=== PATIENT | male | born 1985 | race Hispanic/Latino ===

== ENCOUNTER 2017-07-18 08:00 | Emergency (ER) | payer OTHER ==
[2017-07-18 08:04] VITALS: BMI 23.6
[2017-07-18] MEDS ORDERED: Sodium Chloride 0.9% 1,000 ML IV STA (08:47)
--- NOTE | 2017-07-18 08:50 | ED PDOC ---
Syncope/Near Syncope/Dizziness Time Seen by Provider: 07/18/17 08:18 Chief Complaint (Nursing): Weakness/Neurological Deficit Chief Complaint (Provider): Generalized weakness History Per: Patient, Family Additional Complaint(s): Pt states he woke up 30 minutes [employer] A[employer], urinated, felt generalized weakness while walking back to bed, fell to ground, no LOC, no head trauma. Also saw horizontal bulge in LLQ area that is gone now. Admits to drinking alcohol and using cocaine and marijuana last PM. Denies CP, SOB, palpitations, nausea, vomiting, [place], paresthesias, weakness. Past Medical History Reviewed: Nursing Documentation, Vital Signs Vital Signs: Last Vital Signs Temp 97.6 F 07/18/17 08:04 Pulse 83 07/18/17 08:04 Resp 20 07/18/17 08:04 BP 122/79 07/18/17 08:04 Pulse Ox 98 07/18/17 08:31 - Medical History PMH: No Chronic Diseases - Family History Family History: States: Unknown Family Hx - Living Arrangements Living Arrangements: With Family - Social History Current smoker - smoking cessation education provided: No Alcohol: Social Drugs: Cannabis, Cocaine - Allergies Allergies/Adverse Reactions: Allergies Allergy/AdvReac Type Severity Reaction Status Date / Time No Known Allergies Allergy Verified 07/18/17 08:17 Review of Systems Constitutional: Positive for: Weakness (Generalized). Negative for: Fever, Chills Eyes: Negative for: Vision Change Cardiovascular: Negative for: Chest Pain, Palpitations Respiratory: Negative for: Cough, Shortness of Breath Gastrointestinal: Negative for: Nausea, Vomiting, Abdominal Pain, Diarrhea Skin: Negative for: Rash, Lesions Neurological: Negative for: Numbness, Incoordination, Change in Speech, Confusion, Seizures, Altered Mental Status, Headache, Dizziness Physical Exam - Reviewed Nursing Documentation Reviewed: Yes Vital Signs Reviewed: Yes - Physical Exam Appears: Positive for: Well, No Acute Distress Head Exam: Positive for: ATRAUMATIC, NORMAL INSPECTION Skin: Positive for: Normal Color, Warm, Dry Eye Exam: Positive for: Normal appearance, EOMI, PERRL Cardiovascular/Chest: Positive for: Regular Rate, Rhythm Respiratory: Positive for: Normal Breath Sounds. Negative for: Rales, Rhonchi, Wheezing Gastrointestinal/Abdominal: Positive for: Normal Exam, Bowel Sounds, Soft, Other (L inguinal ligament cord-like, no TTP, no induration, no fluctuance). Negative for: Tenderness, Guarding, Rebound Extremity: Positive for: Normal ROM. Negative for: Tenderness, Pedal Edema, Calf Tenderness, Swelling Neurologic/Psych: Positive for: Alert, steel checker II-XII, Oriented. Negative for: Facial Droop - Laboratory Results Result Diagrams: 07/18/17 09:58 07/18/17 09:58 - ECG Interpretation Of ECG: NSR @ 67, no ST-T changes. O2 Sat by Pulse Oximetry: 98 Pulse Ox Interpretation: Normal Medical Decision Making Medical Decision Makin yo male with near syncope. - labs - IVF - EKG - CXR - CT head Accession No. : [id number] Patient Name / ID : OMAYRA ANDINOO / [id number] Exam Date : 07/18/2017 09:46:51 ( Approved ) Study Comment : Sex / Age : M / Y Creator : Trevor Campbell MD Dictator : Trevor Campbell MD Radio Electronics Technician : Insurance Verification Clerk : Trevor Campbell MD Approver2 : Report Date : 07/18/2017 12:09:04 My Comment : HISTORY: Near syncope COMPARISON: No prior. TECHNIQUE: Chest PA and lateral FINDINGS: LUNGS: No active pulmonary disease. PLEURA: No significant pleural effusion identified. No pneumothorax apparent. CARDIOVASCULAR: Normal. OSSEOUS STRUCTURES: No significant abnormalities. VISUALIZED UPPER ABDOMEN: Normal. OTHER FINDINGS: None. IMPRESSION: No active disease. Accession No. : [id number] Patient Name / ID : MISUMANTH ANDINOO / [id number] Exam Date : 07/18/2017 09:39:09 ( Approved ) Study Comment : Sex / Age : M / Y Creator : Trevor Campbell MD Dictator : Trevor Campbell MD Radio Electronics Technician : Insurance Verification Clerk : Trevor Campbell MD Approver2 : Report Date : 07/18/2017 10:27:35 My Comment : PROCEDURE: CT HEAD WITHOUT CONTRAST. HISTORY: Near syncope COMPARISON: None available. TECHNIQUE: Axial computed tomography images were obtained through the head/brain without intravenous contrast. Radiation dose: Total exam DLP = mGy-cm. This CT exam was performed using one or more of the following dose reduction techniques: Automated exposure control, adjustment of the mA and/or kV according to patient size, and/or use of iterative reconstruction technique. FINDINGS: HEMORRHAGE: No intracranial hemorrhage. BRAIN: No mass effect or edema. No atrophy or chronic microvascular ischemic changes. VENTRICLES: Unremarkable. No hydrocephalus. CALVARIUM: Unremarkable. PARANASAL SINUSES: Unremarkable as visualized. No significant inflammatory changes. MASTOID AIR CELLS: Unremarkable as visualized. No inflammatory changes. OTHER FINDINGS: None. IMPRESSION: Normal CT of the Head. Disposition - Clinical Impression Clinical Impression: Episode of generalized weakness, Near syncope - Disposition Referrals: Mariah Montanez [Outside] Disposition: Routine/Home Disposition Time: 12:10 Condition: IMPROVED Additional Instructions: FOLLOW-UP WITH PMD WITHIN 2 DAYS FOR REEVALUATION. Instructions: Generalized Weakness Forms: [employer] (Swedish)
[2017-07-18 10:12] LABS: BASO % 0.5 % (0.0-2.0); EOS % 0.5 % (0.0-4.0); HEMOGLOBIN 14.3 g/dL (12.0-18.0); LYMPH # 1.4 K/uL (1.0-4.3); LYMPH % 24.6 % (20.0-40.0); MEAN CELL VOLUME 93.1 fl (80.0-94.0); MEAN CORPUSCULAR HEMOGLOBIN 31.6 pg (27.0-31.0); MEAN PLATELET VOLUME 8.1 fl (7.2-11.7); MONO # 0.5 K/uL (0.0-0.8); MONO % 8.4 % (0.0-10.0); NEUT # 3.8 K/uL (1.8-7.0); RBC 4.53 Mil/uL (4.40-5.90); RED CELL DISTRIBUTION WIDTH 13.4 % (11.5-14.5); WHITE BLOOD COUNT 5.7 K/uL (4.8-10.8)
[2017-07-18 10:16] LABS: ALB/GLOB RATIO 1.4 (1.0-2.1); ALBUMIN 4.3 g/dL (3.5-5.0); ALT/SGPT 49 U/L (21-72); AST/SGOT 37 U/L (17-59); BLOOD UREA NITROGEN 9 mg/dl (9-20); CALCIUM 9.7 mg/dL (8.4-10.2); GFR AFRICAN-AMERICAN > 60; GFR NON-AFRICAN AMERICAN > 60
[2017-07-18 10:17] LABS: PARTIAL THROMBOPLASTIN TIME 27.9 Seconds (25.6-37.1); PROTHROMBIN TIME 11.6 Seconds (9.8-13.1)
--- NOTE | 2017-07-18 10:29 | CT ---
PROCEDURE: CT HEAD WITHOUT CONTRAST. HISTORY: Near syncope COMPARISON: None available. TECHNIQUE: Axial computed tomography images were obtained through the head/brain without intravenous contrast. Radiation dose: Total exam DLP = mGy-cm. This CT exam was performed using one or more of the following dose reduction techniques: Automated exposure control, adjustment of the mA and/or kV according to patient size, and/or use of iterative reconstruction technique. FINDINGS: HEMORRHAGE: No intracranial hemorrhage. BRAIN: No mass effect or edema. No atrophy or chronic microvascular ischemic changes. VENTRICLES: Unremarkable. No hydrocephalus. CALVARIUM: Unremarkable. PARANASAL SINUSES: Unremarkable as visualized. No significant inflammatory changes. MASTOID AIR CELLS: Unremarkable as visualized. No inflammatory changes. OTHER FINDINGS: None. IMPRESSION: Normal CT of the Head.
[2017-07-18 10:41] LABS: URINE BACTERIA RARE (<OCC); URINE BILIRUBIN NEGATIVE (NEGATIVE); URINE BLOOD NEGATIVE (NEGATIVE); URINE CLARITY CLEAR (Clear); URINE COLOR YELLOW (YELLOW); URINE GLUCOSE (UA) NEG (Normal); URINE LEUKOCYTE ESTERASE NEG Leu/uL (Negative); URINE PROTEIN NEGATIVE (NEGATIVE); URINE UROBILINOGEN 0.2-1.0 mg/dL (0.2-1.0)
[2017-07-18 11:00] LABS: BARBITURATES, UR NEGATIVE (NEGATIVE); BENZODIAZEPINES, UR NEGATIVE (NEGATIVE); OPIATES, UR NEGATIVE (NEGATIVE); PHENCYCLIDINE, UR NEGATIVE (NEGATIVE)
--- NOTE | 2017-07-18 12:10 | RAD ---
HISTORY: Near syncope COMPARISON: No prior. TECHNIQUE: Chest PA and lateral FINDINGS: LUNGS: No active pulmonary disease. PLEURA: No significant pleural effusion identified. No pneumothorax apparent. CARDIOVASCULAR: Normal. OSSEOUS STRUCTURES: No significant abnormalities. VISUALIZED UPPER ABDOMEN: Normal. OTHER FINDINGS: None. IMPRESSION: No active disease.
[2017-07-18 12:23] VITALS: BP 123/65; PULSE 80; RESP 18; TEMP 97.9
[2017-07-18 13:05] VITALS: O2SAT 98
--- NOTE | 2017-07-19 08:18 | CARD ---
APPROVED REPORT EKG Measurement Heart [id number] <Conclusion> Normal sinus rhythm Normal ECG
== END 2017-07-18 12:23 | disposition home or self-care (01) ==
LOC: H.ER 08:00
DX: R55 Syncope and collapse (principal); R53.1 Weakness
CPT/HCPCS: 70450; 71046; 80053; 80320; 80324; 80345; 80346; 80349; 80353; 80358; 80361; 81003; 83992; 84484; 85025; 85378; 85610; 85730; 93005; 96360; 99283; J7040